=== PATIENT | male | born 1985 | race American Indian/Alaskan Native ===

== ENCOUNTER 2021-10-24 15:25 | Emergency (ER) | payer OTHER ==
[2021-10-24] MEDS ORDERED: HYDROmorphone 1 MG/1 ML INJ IV ONE ×2 (15:41→17:56)
[2021-10-24] MEDS ORDERED: ONDANSETRON 4 MG/2 ML INJ IV ONE (15:41)
--- NOTE | 2021-10-24 15:53 | Emergency Department Report ---
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 Pain is constant, worse with palpation and movement. No alleviating factors reported. Patient has to self cath due to chronically enlarged urine secondary to prune-belly syndrome. Since yesterday he has noticed "mucus-like" sediment at the base of his bedside bottle where he disposes of the urine. He also had urine that exited around the catheter doing self cathing episode today. Patient has been here in the past under a chart with an alternative medical record number. Patient's previous visits are under medical record [id number] - Related Data Previous Rx's Medication Instructions Recorded Last Taken Type Cefuroxime Axetil [Cefuroxime] 500 mg PO BID #20 tab 10/24/21 Unknown Rx oxyCODONE /ACETAMINOPHEN [Percocet 1 tab PO Q6HR PRN #20 tablet 10/24/21 Unknown Rx 5/325] Allergies Allergy/AdvReac Type Severity Reaction Status Date / Time ciprofloxacin [From Cipro] AdvReac Unknown Verified 10/24/21 15:32 Iodinated Contrast Media AdvReac Unknown Verified 10/24/21 15:32 sulfamethoxazole AdvReac Unknown Verified 10/24/21 15:32 [From Bactrim] trimethoprim [From Bactrim] AdvReac Unknown Verified 10/24/21 15:32 ED Review of Systems ROS: Stated complaint: ABDOMINAL PAIN Other details as noted in HPI ED Past Medical Hx - Past Medical History Hx Hypertension: Yes Additional medical history: prune belly syndrome - Surgical History Additional Surgical History: partial nephrectomy, bladder surgery. - Medications Home Medications: Home Medications Medication Instructions Recorded Confirmed Last Taken Type Cefuroxime Axetil [Cefuroxime] 500 mg PO BID #20 tab 10/24/21 Unknown Rx oxyCODONE /ACETAMINOPHEN [Percocet 1 tab PO Q6HR PRN #20 tablet 10/24/21 Unknown Rx 5/325] ED Physical Exam - General Limitations: No Limitations ED Course Vital Signs 10/24/21 10/24/21 10/24/21 15:30 16:09 16:15 Temperature Pulse Rate 104 H 119 H 102 H Respiratory 19 16 Rate Blood Pressure Blood Pressure 160/100 [Right] O2 Sat by Pulse 100 99 81 L Oximetry 10/24/21 10/24/21 10/24/21 16:19 16:35 16:46 Temperature 98.9 F Pulse Rate 98 H 97 H 99 H Respiratory 20 17 13 Rate Blood Pressure 164/113 Blood Pressure [Right] O2 Sat by Pulse 99 100 98 Oximetry 10/24/21 10/24/21 10/24/21 17:00 17:16 18:27 Temperature Pulse Rate 103 H 96 H 95 H Respiratory 21 16 18 Rate Blood Pressure 156/103 156/103 Blood Pressure 157/89 [Right] O2 Sat by Pulse 98 99 98 Oximetry 10/24/21 18:53 Temperature Pulse Rate 69 Respiratory 16 Rate Blood Pressure Blood Pressure 153/74 [Right] O2 Sat by Pulse 100 Oximetry ED Medical Decision Making - Lab Data Result diagrams: 10/24/21 16:05 10/24/21 16:05 Lab Results 10/24/21 10/24/21 10/24/21 Range/Units 16:05 16:05 16:40 WBC 8.4 (4.5-11.0) K/mm3 RBC 5.00 (3.65-5.03) M/mm3 Hgb 14.2 (11.8-15.2) gm/dl Hct 44.0 (35.5-45.6) % MCV 88 (84-94) fl MCH 28 (28-32) pg MCHC 32 (32-34) % RDW 13.4 (13.2-15.2) % Plt Count 266 (140-440) K/mm3 Lymph % (Auto) 8.2 L (13.4-35.0) % [place] % (Auto) 12.9 H (0.0-7.3) % Eos % (Auto) 2.5 (0.0-4.3) % Baso % (Auto) 0.4 (0.0-1.8) % Lymph # (Auto) 0.7 L (1.2-5.4) K/mm3 [place] # (Auto) 1.1 H (0.0-0.8) K/mm3 Eos # (Auto) 0.2 (0.0-0.4) K/mm3 Baso # (Auto) 0.0 (0.0-0.1) K/mm3 Seg Neutrophils % 76.0 H (40.0-70.0) % Seg Neutrophils # 6.4 (1.8-7.7) K/mm3 Sodium 135 L (137-145) mmol/L Potassium 4.0 (3.6-5.0) mmol/L Chloride 99.1 (98-107) mmol/L Carbon Dioxide 22 (22-30) mmol/L Anion Gap 18 mmol/L BUN 19 (9-20) mg/dL Creatinine 1.2 (0.8-1.3) mg/dL Estimated GFR > 60 ml/min BUN/Creatinine Ratio 16 % Glucose 94 (75-100) mg/dL Calcium 10.3 H (8.4-10.2) mg/dL Total Bilirubin 0.30 (0.1-1.2) mg/dL AST 33 (5-40) units/L ALT 20 (7-56) units/L Alkaline Phosphatase 61 (35-129) units/L Total Protein 7.3 (6.3-8.2) g/dL Albumin 4.7 (3.9-5) g/dL Albumin/Globulin Ratio 1.8 % Urine Color Yellow (Yellow) Urine Turbidity Turbid (Clear) Urine pH 8.0 H (5.0-7.0) Ur Specific [place] 1.008 (1.003-1.030) Urine Protein 100 mg/dl (Negative) mg/dL Urine Glucose (UA) Neg (Negative) mg/dL Urine Ketones Neg (Negative) mg/dL Urine Blood Sm (Negative) Urine Nitrite Neg (Negative) Urine Bilirubin Neg (Negative) Urine Urobilinogen < 2.0 (<2.0) mg/dL Ur Leukocyte Esterase Lg (Negative) Urine WBC (Auto) < 182.0 H (0.0-6.0) /HPF Urine RBC (Auto) 38.0 (0.0-6.0) /HPF Urine WBC Clumps 3+ /HPF Hyaline Casts 18 /LPF Urine Yeast (Budding) 2+ /HPF - Radiology Data Radiology results: report reviewed CT ABDOMEN AND PELVIS WITHOUT CONTRAST INDICATION: left flank pain, hx of prune belly syndrome CONTRAST: Without IV COMPARISON: 08/10/[address] scans at this location are performed using CT dose reduction for ALARA by means of automated exposure control. FINDINGS: Scarring is again seen in the right lower lobe lung bases otherwise are clear. No pneumoperitoneum is seen. No abdominal wall hernia is noted. The abdominal wall musculature appears diminished but is not absent. Gallbladder possibly is identified and if so is markedly contracted. No biliary dilatation is seen. No abdominal masses are noted. No lymphadenopathy is seen. No free fluid is noted. No evidence of bowel obstruction is seen. No inflammatory changes are noted. Appendix appears within normal limits. No pelvic masses are seen. As was seen previously there is marked bilateral pelvocaliectasis, left greater than right. This is similar to the prior examination. Bilateral nephrolithiasis is again seen which is minimal on the right and mild on the left. Some of the dependent calcifications seen previously in the left renal collecting system in the mid pole are no longer seen. Apparent surgical changes are again noted in the upper pole the left kidney. The renal cortices bilaterally again show thinning similar to prior study. The left ureter is markedly dilated as previously 2 just below the pelvic brim level. Thickening of the wall of the mid left ureter is more obvious than on previous study and is diffusely suggesting mild inflammation. No definite ureteral calculi are seen. The distal left ureter shows abrupt tapering below the level the pelvic brim though there is mild dilatation in its distal most portion near the bladder. Right ureter is prominently dilated similar to prior study though not is noticeably as the left and I do not see wall thickening on the right. Again no right ureteral calculi are seen. Urinary bladder is decompressed by a Shultz catheter. Prostate and seminal vesicles appear within normal limits. IMPRESSION: 1. Continued marked bilateral hydronephrosis, left greater than right, similar to prior study 2. Continued bilateral significant ureteral dilatation, left greater than r ight, similar to prior study but now there is diffuse thickening of the wall of the left ureter with possible mild inflammatory change suggesting ureteral right is. I do not see a clear obstructing lesion in either ureter. 3. Bilateral nephrolithiasis, less on the left now than on prior study Critical Care Time: No Critical care attestation.: If time is entered above; I have spent that time in minutes in the direct care of this critically ill patient, excluding procedure time. ED Disposition Clinical Impression: UTI (urinary tract infection), Chronic retention of urine, Left flank pain Disposition: HOME / SELF CARE / HOMELESS Is pt being admited?: No Does the pt Need Aspirin: No Condition: Stable Instructions: Clean Intermittent Catheterization, Male, Indwelling Urinary Catheter Care, Adult, [id number] Additional Instructions: Take the medication as prescribed. Follow-up with your doctor or doctor/clinic provided. Return if symptoms worsen as indicated by your discharge instructions. Prescriptions: Cefuroxime Axetil [Cefuroxime] 500 mg PO BID #20 tab oxyCODONE /ACETAMINOPHEN [Percocet 5/325] 1 tab PO Q6HR PRN #20 tablet PRN Reason: Pain Referrals: PRIMARY CARE, [Primary Care Provider] - 3-5 Days ELADIO RUSSELL MD [Staff Physician] - 3-5 Days (urology ) Forms: Work/School Release Form(ED) Time of Disposition: 18:05
[2021-10-24 16:26] LABS: Basophils % (Auto) 0.4 % (0.0-1.8); Eosinophils # (Auto) 0.2 K/mm3 (0.0-0.4); Eosinophils % (Auto) 2.5 % (0.0-4.3); Hemoglobin 14.2 gm/dl (11.8-15.2); Lymphocytes # (Auto) 0.7 K/mm3 (1.2-5.4); Lymphocytes % (Auto) 8.2 % (13.4-35.0); Mean Corpuscular HGB Conc 32 % (32-34); Mean Corpuscular Volume 88 fl (84-94); Monocytes # (Auto) 1.1 K/mm3 (0.0-0.8); Monocytes % (Auto) 12.9 % (0.0-7.3); Platelet Count 266 K/mm3 (140-440); Red Cell Distribution Width 13.4 % (13.2-15.2)
[2021-10-24 16:38] LABS: Alanine Aminotransferase 20 units/L (7-56); Albumin 4.7 g/dL (3.9-5); BUN/Creatinine Ratio 16; Blood Urea Nitrogen 19 mg/dL (9-20); Calcium 10.3 mg/dL (8.4-10.2); Hemolysis Index 24
--- NOTE | 2021-10-24 17:00 | Cat Scan Report ---
CT ABDOMEN AND PELVIS WITHOUT CONTRAST INDICATION: left flank pain, hx of prune belly syndrome CONTRAST: Without IV COMPARISON: 08/10/[address] scans at this location are performed using CT dose reduction for ALARA by means of automated e xposure control. FINDINGS: Scarring is again seen in the right lower lobe lung bases otherwise are clear. No pneumoper itoneum is seen. No abdominal wall hernia is noted. The abdominal wall musculature appears diminished but is not absent. Gallbladder possibly is identified and if so is markedly contracted. No biliary dilatation is seen. N o abdominal masses are noted. No lymphadenopathy is seen. No free fluid is noted. No evidence of gillian l obstruction is seen. No inflammatory changes are noted. Appendix appears within normal limits. No p elvic masses are seen. As was seen previously there is marked bilateral pelvocaliectasis, left greater than right. This is s imilar to the prior examination. Bilateral nephrolithiasis is again seen which is minimal on the righ t and mild on the left. Some of the dependent calcifications seen previously in the left renal collec ting system in the mid pole are no longer seen. Apparent surgical changes are again noted in the uppe r pole the left kidney. The renal cortices bilaterally again show thinning similar to prior study. Th e left ureter is markedly dilated as previously 2 just below the pelvic brim level. Thickening of the wall of the mid left ureter is more obvious than on previous study and is diffusely suggesting mild inflammation. No definite ureteral calculi are seen. The distal left ureter shows abrupt tapering bel ow the level the pelvic brim though there is mild dilatation in its distal most portion near the blad quinn. Right ureter is prominently dilated similar to prior study though not is noticeably as the left and I do not see wall thickening on the right. Again no right ureteral calculi are seen. Urinary blad quinn is decompressed by a Shultz catheter. Prostate and seminal vesicles appear within normal limits. IMPRESSION: 1. Continued marked bilateral hydronephrosis, left greater than right, similar to prior study 2. Continued bilateral significant ureteral dilatation, left greater than right, similar to prior kyle dy but now there is diffuse thickening of the wall of the left ureter with possible mild inflammatory change suggesting ureteral right is. I do not see a clear obstructing lesion in either ureter. 3. Bilateral nephrolithiasis, less on the left now than on prior study Signer Name: Santiago Branch MD Signed: 10/24/2021 4:56 PM Workstation Name: [id number]
[2021-10-24 17:17] LABS: Color,Urine Yellow (Yellow)
[2021-10-24 17:18] LABS: Bilirubin,Urine NEG (Negative); Blood,Urine SM (Negative); Hyaline Casts,Urine 18 /LPF; Urobilinogen,Urine < 2.0 mg/dL (<2.0)
[2021-10-24 17:21] LABS: WBC,Urine < 182.0 /HPF (0.0-6.0)
[2021-10-24] MEDS ORDERED: cefTRIAXone/NS 1 GM/50 ML 1 GM/50 ML BAG IV ONE (17:28)
[2021-10-24] MEDS ORDERED: KETOROLAC 30 MG/1 ML INJ IV ONE (17:56)
[2021-10-24 18:54] VITALS: BP 153/74
== END 2021-10-24 18:53 | disposition home or self-care (01) ==
LOC: ED 15:25
DX: R33.9 Retention of urine, unspecified (principal); N39.0 Urinary tract infection, site not specified; G89.29 Other chronic pain; I10 Essential (primary) hypertension; Z79.899 Other long term (current) drug therapy; Z88.1 Allergy status to other antibiotic agents; Z91.041 Radiographic dye allergy status; Z88.2 Allergy status to sulfonamides; Z88.8 Allergy status to other drugs, medicaments and biological substances
CPT/HCPCS: 36415; 51702; 74176; 80053; 81001; 85025; 87086; 96365; 96375; 96376; 99284; J0696; J1170; J1885; J2405